=== PATIENT | male | born 1985 | race Caucasian/White ===

== ENCOUNTER 2023-01-24 11:14 | Outpatient (AMB) | payer BC, SELFPAY ==
--- NOTE | 2023-01-24 11:51 | HO.SPINEOV ---
Intake Intake Visit Reasons: Bulging disc Intake Note: Mr. Lou is here today c/o low back pain. MRI done @ [facility]/brought disc. Puncher Required: No Assessment & Plan Assessment & Plan (1) Lumbar radiculopathy: Code(s): M54.16 - Radiculopathy, lumbar region Plan Fransisco is a 37-year-old male who is self-referred to our office today. He comes in with a chief complaint of low back pain and radicular symptoms down the posterior left thigh. He reports he is here is a 2nd opinion after being recommended for a 3 level fusion at the levels of L3-4, L4-5, and L5-S1. 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 He states the pain was significant for many years, with radiation of symptoms down his right side but eventually was resolved with steroid injections, personal care assistant, physical therapy, and rest. He states that for the last 3-4 years he had little to no back or leg pain and no radiation of symptoms. This all changed in October of this year when he was reaching down to pickers material handlers his dog out of the bathtub. He states he felt a twinge/pop in his back when attempting to lift his dog, which started his left-sided low back pain with radicular symptoms down the posterior aspect of his left thigh. He reports that the main reason that he is here today is because of the persistent radiation of pain symptoms down his left leg which irritates him throughout the day. 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 He does endorse trying nearly all [id number] solutions for this problem, including Tylenol, ibuprofen, pain patches, ice, and heat. He also has put himself back into physical therapy. PMH: None reported. Social hx: Does not smoke, no disclosed substance use. Medications: Occasional ibuprofen if pain is severe enough. Allergies: NKDA. Physical exam: Sensation: Dullness / numbess to touch on posterior L thigh. Rest of sensation is grossly intact. CN: II-XII grossly intact. Strength Testing Upper Extremities: - Deltoid 5/5 right 5/5 left - Biceps 5/5 right 5/5 left - Triceps 5/5 right 5/5 left - Wrist Ext 5/5 right 5/5 left - Wrist Flex 5/5 right 5/5 left - Hand wool dyer 5/5 right 5/5 left - Interossei 5/5 right 5/5 left Strength Testing Lower Extremities: - Hip flexion 5/5 right 5/5 left - Knee extension 5/5 right 5/5 left - Dorsiflexion 5/5 right 5/5 left - Plantar flex 5/5 right 5/5 left - EHL 5/5 right 5/5 left Reflexes: - Biceps Right - 2+ Left - 2+ - Triceps Right - 2+ Left - 2+ - Patellar Right - 2+ Left - 2+ - Achilles Right - 2+ Left - 2+ - Plantar Right - 2+ Left - 2+ (+) L sided straight leg raise. (-) R sided. (-) Caicedo?s sign Imaging review: MRI from 11/13/2022 shows moderate to severe spinal stenosis from L2-S1. Moderate to severe posterior disc bulge noted at L3-4, and L4-5 with moderate/severe right-sided nerve root impingement at the levels of L3-4, and L4-5. There is diffuse disc degeneration of the lumbar spine. There is also endplate inflammation/edema noted at L4-5, and L5-S1. Impression: The patient is a 37-year-old male who comes in with a chief complaint of predominantly left posterior thigh pain, which radiates from his low back. He has a clinical history of a football injury as a teenager which originally started his low back pain. Today he reports that his pain is different than his previous injury, and has a history and physical most consistent with an acute disc herniation, with minimal low back pain after a lifting injury. His physical exam is largely unremarkable with no weakness / strength restriction. He is still able to accomplish all of his ADLs, shows up to work, and is able to sleep without issue. He is not on narcotic medication is able to manage his pain predominantly with ibuprofen at this time, although he reports his pain still breaks through at times. After reviewing his imaging and clinical story with ARON Antony, it is believed that he has an acute disc herniation impinging the right-sided nerve roots, and that the associated inflammation is causing left-sided symptoms. The patient will be given a Solu-Medrol Dosepak alongside a prescription of gabapentin and was encouraged to follow up with our office in 3 months to discuss symptom progression. Many acute disc herniations such as these will resolve in short periods of time or at least will begin to have symptom improvement. It would be a shame to do a 3 level fusion on a functional 37-year-old if conservative measures can be of more benefit. Ideally the steroid Dosepak will provide inflammation relief and the gabapentin will provide acute nerve pain relief. The patient was encouraged to follow up with our office for any questions/concerns. Thank you for allowing us to care for your patient. The total time spent with this visit with this patient was 60 minutes reviewing history, physical exam, MRI Lumbar spine imaging review, and implementation of treatment plan or further diagnostic testing Pierce Rahman MD,PhD [facility] Medications: New gabapentin 300 mg PO TID 90 caps 0RF nerve pain methylprednisolone (Methylpred DP) PO PER PKG DIR 21 ea 0RF Coding Level of Care Code New Pt Level 5 (01818) Diagnoses Lumbar radiculopathy M54.16
== END 2023-01-24 12:23 | disposition home or self-care (01) ==
PROVIDERS: Visit Provider Physician Assistant
DX: M54.16 Radiculopathy, lumbar region (principal)
CPT/HCPCS: 99205

== ENCOUNTER → 2023-01-24 11:14 | Outpatient (BNVA) | payer BC, SELFPAY | PROVIDERS: Visit Provider Physician Assistant ==